=== PATIENT | female | born 1940 | race Caucasian/White ===

== ENCOUNTER 2016-11-19 00:55 | Inpatient (IN) | payer MEDICAID, OTHER ==
[~2016-11-19] VITALS: Ht 154.9 cm; Wt 475.4 kg
[~2016-11-19 00:55] MED LIST: ASCO500T9 PO; DEXT38GE12 PO; DOCU-25 PO; GLIM2TAB2 PO; GUAI600T PO; HYDR-3326 PO; IPRA3AMP IH; LEVO250T2 GT; LEVO500T15 PO; LEVO50TA8 PO; METF10002 PO; MONT10TA22 PO; MULT1TAB11 PO; OMEP20CA10 PO; PRED20TA PO; SENN8.6T6 PO; SERT25TA PO; TEMA15CA PO; TRAZ-144 PO; WHEA1POW6 PO
[2016-11-19] MEDS ORDERED: IV NS 0.9% 500 ML IV ONE ×2 (01:30→02:00)
[2016-11-19] MEDS ORDERED: IPRATROPIUM NEB FS 0.5 MG/2.5 ML AMPUL.NEB NEB ONE (01:30)
[2016-11-19] MEDS ORDERED: methylPREDNISolone SOD SUCC 125 MG/2ML VIAL IV ONE (01:30)
[2016-11-19] MEDS ORDERED: ALBUTEROL FS 2.5 MG/3 ML VIAL.NEB CONTNEB ONE (01:30)
[2016-11-19 01:38] LABS: BASOPHILS % (AUTO) 0.3 % (0.0-2.0); DIFF TOTAL % 100 %; EOSINOPHILS # (AUTO) 0.5 /CMM (0.0-0.7); EOSINOPHILS % (AUTO) 7.7 % (0.0-6.0); HEMATOCRIT 43 % (33-45); HEMOGLOBIN 13.9 g/dL (11.5-14.8); LYMPHOCYTES # (AUTO) 3.9 /CMM (0.8-4.8); MEAN CORPUSCULAR HEMOGLOBIN 30 PG (26.0-33.0); MEAN CORPUSCULAR HGB CONC 32 g/dl (31.0-36.0); MEAN CORPUSCULAR VOLUME 94 fL (82-100); MONOCYTES # (AUTO) 0.4 /CMM (0.1-1.30); MONOCYTES % (AUTO) 5.2 % (2.0-12.0); NEUTROPHILS % (AUTO) 29.8 % (43.0-81.0); PLATELET COUNT (AUTO) 272 /CMM (150-450); WHITE BLOOD COUNT (AUTO) 6.8 K/uL (4.3-11.0)
[2016-11-19] MEDS ORDERED: IPRATROPIUM NEB FS 0.5 MG/2.5 ML AMPUL.NEB ONE (01:44)
[2016-11-19] MEDS ORDERED: ALBUTEROL FS 2.5 MG/3 ML VIAL.NEB ONE (01:44)
[2016-11-19 01:54] LABS: ANION GAP 11 (5-14); CALCIUM, SERUM 9.2 mg/dL (8.5-10.1); CARBON DIOXIDE 29 mmol/L (21-32); CHLORIDE 109 mmol/L (98-107); CREATININE 0.9 mg/dL (0.6-1.3); GLUCOSE 107 mg/dL (74-106); POTASSIUM 3.6 mmol/L (3.5-5.1); SODIUM SERUM 146 mmol/L (136-145); UREA NITROGEN, BLOOD 24 mg/dL (7-18)
[2016-11-19] MEDS ORDERED: IV SET PRIMARY 1 EA INFUS.SET MC ONE (02:00)
[2016-11-19] MEDS ORDERED: methylPREDNISolone SOD SUCC 125 MG/2ML VIAL ONE (02:00)
[2016-11-19 02:03] LABS: TROPONIN I < 0.017 ng/mL (0.00-0.056)
[2016-11-19 02:19] LABS: ALANINE AMINOTRANSFERASE 13 U/L (12-78); ASPARTATE AMINOTRANSFERASE 14 U/L (15-37); BILIRUBIN,TOTAL 0.3 mg/dL (0.2-1.0); INDIRECT BILIRUBIN 0.3 mg/dL (0.0-1.1); TOTAL PROTEIN, SERUM 7.6 g/dL (6.4-8.2)
[2016-11-19 02:59] LABS: ABG BASE EXCESS 0.1 mmol/L; ABG HCO3 25.3 mmol/L; ABG PCO2 43.1 mmHg (35.0-45.0); ABG PH 7.387 (7.350-7.450); ABG PO2 52.7 mmHg (75.0-100.0); ABG TOTAL HEMOGLOBIN 13.6 G/dL (12.0-16.0); ALLEN TEST Pass; AaDO2 96.1 mmHg; O2Hb 86.3 % (94.0-97.0)
[2016-11-19] MEDS ORDERED: IOHEXOL-350 100 ML VIAL IV ONE (03:14)
[2016-11-19] MEDS ORDERED: IV NS 0.9% 250 ML IV ONE ×2 (03:14→09:03)
[2016-11-19] MEDS ORDERED: MAG HYDROX/AL HYDROX/SIMETH 30 ML UDC PO PRN (05:00)
[2016-11-19] MEDS ORDERED: ACETAMINOPHEN 325 MG TABLET PO PRN (05:00)
[2016-11-19] MEDS ORDERED: TEMAZEPAM 15 MG CAPSULE PO PRN (05:00)
[2016-11-19] MEDS ORDERED: ALBUTEROL FS 2.5 MG/3 ML VIAL.NEB NEB PRN (05:00)
[2016-11-19] MEDS ORDERED: MAGNESIUM HYDROXIDE 30 ML UDC PO PRN (05:00)
[2016-11-19] MEDS ORDERED: ONDANSETRON HCL/PF 4 MG/2 ML VIAL IVP PRN (05:00)
[2016-11-19] MEDS ORDERED: IPRATROPIUM NEB FS 0.5 MG/2.5 ML AMPUL.NEB NEB PRN (05:00)
[2016-11-19] MEDS ORDERED: Z GUARD REMEDY 2 OZ OINT TP PRN (05:00)
[2016-11-19 05:37] LABS: THYROID STIMULATING HORMONE 2.111 uIU/mL (0.358-3.74)
[2016-11-19 07:19] VITALS: BP 107/64
[2016-11-19] MEDS ORDERED: PANTOPRAZOLE 40 MG TABLET.DR PO SCH (07:30)
[2016-11-19 08:00] VITALS: BP 107/64
[2016-11-19] MEDS ORDERED: FLUT1DIS INH (08:08)
[2016-11-19] MEDS ORDERED: ALBU1.257 NEB (08:08)
[2016-11-19] MEDS ORDERED: DEXTROSE 50%-WATER 50 ML DISP.SYRIN IV PRN (08:30)
[2016-11-19] MEDS ORDERED: *INSULIN REGULAR(HUMULIN R)HUM 100 UNIT/ML VIAL SQ PRN (08:30)
[2016-11-19] MEDS: methylPREDNISolone SOD SUCC 40 MG/ML VIAL IV SCH ×3 (08:57→21:28)
[2016-11-19] MEDS ORDERED: LEVOFLOXACIN 500 MG /D5W 100ML 500 MG in PREMIX 1 EA IV SCH (09:00)
[2016-11-19] MEDS ORDERED: IV SET PRIMARY PUMP SET 1 EA INFUS.SET MC ONE (09:03)
[2016-11-19] MEDS ORDERED: SECONDARY IV SET 1 EA INFUS.SET MC ONE (09:03)
[2016-11-19] MEDS: INSULIN REGULAR, HUMAN 100 UNIT/ML 3 ML VIAL SQ PRN ×3 (09:07→21:46)
[2016-11-19] MEDS: BLOOD SUGAR DIAGNOSTIC 1 EACH STRIP VI SCH ×4 (09:08→21:46)
[2016-11-19] MEDS: ALBUTEROL FS 2.5 MG/3 ML VIAL.NEB NEB SCH ×3 (10:16→19:54)
[2016-11-19] MEDS: IPRATROPIUM NEB FS 0.5 MG/2.5 ML AMPUL.NEB NEB SCH ×3 (10:16→19:54)
[2016-11-19] MEDS ORDERED: methylPREDNISolone SOD SUCC 40 MG/ML VIAL IV SCH (11:00)
[2016-11-19] MEDS ORDERED: diphenhydrAMINE HCL ELIX 25 MG/10 ML UDC PO PRN (11:30)
[2016-11-19 18:52] VITALS: BP 98/51
[2016-11-19 20:00] VITALS: BP 102/61
[2016-11-19] MEDS ORDERED: ZOLPIDEM TARTRATE 5 MG TABLET ONE (20:45)
[2016-11-19] MEDS ORDERED: ZOLPIDEM TARTRATE 5 MG TABLET PO PRN (21:00)
[2016-11-20] MEDS: ALBUTEROL FS 2.5 MG/3 ML VIAL.NEB NEB SCH ×3 (00:30→13:29)
[2016-11-20] MEDS: IPRATROPIUM NEB FS 0.5 MG/2.5 ML AMPUL.NEB NEB SCH ×3 (00:30→13:29)
[2016-11-20] MEDS: methylPREDNISolone SOD SUCC 40 MG/ML VIAL IV SCH ×2 (05:28→12:41)
[2016-11-20] MEDS: BLOOD SUGAR DIAGNOSTIC 1 EACH STRIP VI SCH ×2 (06:47→11:56)
[2016-11-20 08:00] VITALS: BP 101/59
[2016-11-20] MEDS ORDERED: IPRA3AMP IH (08:40)
[2016-11-20] MEDS ORDERED: LEVOFLOXACIN 250 MG /D5W 50 ML 250 MG in PREMIX 1 EA IV SCH (09:00)
== END 2016-11-20 14:15 | disposition home or self-care (01) | DRG 189 ==
LOC: ER 00:56 → TELE 05:32 → MED 09:05
PROVIDERS: ADMIT Internal Medicine; ATTEND Internal Medicine
DX: J96.00 Acute respiratory failure, unspecified whether with hypoxia or hypercapnia (principal); J44.1 Chronic obstructive pulmonary disease with (acute) exacerbation; J45.909 Unspecified asthma, uncomplicated; E03.9 Hypothyroidism, unspecified; E11.9 Type 2 diabetes mellitus without complications; I10 Essential (primary) hypertension; I25.10 Atherosclerotic heart disease of native coronary artery without angina pectoris; I25.2 Old myocardial infarction; M19.90 Unspecified osteoarthritis, unspecified site; K21.9 Gastro-esophageal reflux disease without esophagitis
CPT/HCPCS: 36415; 36600; 71010-TC; 80048-TC; 80061-TC; 80076-TC; 82962-TC; 83735-TC; 83880; 84100-TC; 84443-TC; 84484-TC; 85025-TC; 85378-TC; 87081-TC; 94799-TC; A4216; A4606; J1815; J1956; J2920; J2930; J7040; J7050; Q9967; Z7610

== ENCOUNTER 2017-04-02 22:24 | Inpatient (IN) | payer OTHER ==
[~2017-04-02] VITALS: Ht 152.4 cm; Wt 40.8 kg
[~2017-04-02 22:24] MED LIST changes: -ASCO500T9 PO; -DEXT38GE12 PO; -DOCU-25 PO; +FLUT1DIS INH; -GLIM2TAB2 PO; -GUAI600T PO; -HYDR-3326 PO; -LEVO250T2 GT; -LEVO500T15 PO; -LEVO50TA8 PO; -MONT10TA22 PO; -MULT1TAB11 PO; -OMEP20CA10 PO; -PRED20TA PO; -SENN8.6T6 PO; -SERT25TA PO; -TEMA15CA PO; -TRAZ-144 PO; -WHEA1POW6 PO
--- NOTE | 2017-04-02 22:25 | NUR ---
TO BED 2 BIB PARAMEDICS C/O SOB. WHEEZING HEARD BILATERALLY ON AUSCULTATION. PT AAOX4 NO ACUTE DISTRESS NOTED, RESP EVEN AND UNLABORED. PLACE PT ON CARDIAC MONITORING, CONTINUOUS POX, O2@2L/NC. ER MD AT BEDSIDE TO EVAL PT WITH ORDERS RECEIVED. WILL CARRY OUT ORDERS. STARTED SL 18G TO l AC, BLOOD DRAWN AND SENT TO LAB.
[2017-04-02] MEDS ORDERED: IPRATROPIUM NEB FS 0.5 MG/2.5 ML AMPUL.NEB NEB ONE (22:30)
[2017-04-02] MEDS ORDERED: ALBUTEROL FS 2.5 MG/3 ML VIAL.NEB NEB ONE (22:30)
--- NOTE | 2017-04-02 22:30 | NUR ---
CALLED RT FOR BREATHING TREATMENT
--- NOTE | 2017-04-02 22:31 | NUR ---
RT AT BEDSIDE FOR HHN TX.
[2017-04-02] MEDS ORDERED: IPRATROPIUM NEB FS 0.5 MG/2.5 ML AMPUL.NEB ONE (22:40)
[2017-04-02] MEDS ORDERED: ALBUTEROL FS 2.5 MG/3 ML VIAL.NEB ONE (22:40)
--- NOTE | 2017-04-02 22:40 | NUR ---
URINE SAMPLE COLLECTED AND SENT TO LAB.
[2017-04-02 22:54] LABS: BASOPHILS % (AUTO) 0.3 % (0.0-2.0); EOSINOPHILS # (AUTO) 0.5 /CMM (0.0-0.7); EOSINOPHILS % (AUTO) 6.5 % (0.0-6.0); HEMATOCRIT 48 % (33-45); HEMOGLOBIN 15.9 g/dL (11.5-14.8); LYMPHOCYTES % (AUTO) 50.4 % (20.0-44.0); MEAN CORPUSCULAR HEMOGLOBIN 31 PG (26.0-33.0); MEAN CORPUSCULAR HGB CONC 33 g/dl (31.0-36.0); MEAN CORPUSCULAR VOLUME 93 fL (82-100); MONOCYTES # (AUTO) 0.5 /CMM (0.1-1.30); MONOCYTES % (AUTO) 6.9 % (2.0-12.0); NEUTROPHILS # (AUTO) 2.8 /CMM (1.8-8.9); NEUTROPHILS % (AUTO) 35.9 % (43.0-81.0); PLATELET COUNT (AUTO) 320 /CMM (150-450); RDW COEFFICIENT OF VARIATION 13.7 (11.5-15.0); WHITE BLOOD COUNT (AUTO) 7.9 K/uL (4.3-11.0)
[2017-04-02 23:03] LABS: APPEARANCE,URINE CLEAR (CLEAR); BILIRUBIN,URINE 1+ (NEGATIVE); BLOOD, URINE NEGATIVE Ery/uL (NEGATIVE); COLOR,URINE YELLOW (YELLOW); KETONES,URINE TRACE (NEGATIVE); LEUKOCYTE ESTERASE ,URINE NEGATIVE (NEGATIVE); NITRITE, URINE NEGATIVE (NEGATIVE); PH,URINE 5.5 (5.0-8.0); PROTEIN,URINE TRACE mg/dl (NEGATIVE); UGLUCOSE NEGATIVE (NEGATIVE); UROBILINOGEN,URINE 0.2 EU/dL (0.2)
[2017-04-02 23:06] LABS: CALCIUM, SERUM 9.3 mg/dL (8.5-10.1); CARBON DIOXIDE 33 mmol/L (21-32); CHLORIDE 104 mmol/L (98-107); CREATININE 1.1 mg/dL (0.6-1.3); GLUCOSE 130 mg/dL (74-106); SODIUM SERUM 145 mmol/L (136-145); UREA NITROGEN, BLOOD 22 mg/dL (7-18)
[2017-04-02 23:11] LABS: TROPONIN I < 0.017 ng/mL (0.00-0.056)
--- NOTE | 2017-04-02 23:16 | NUR ---
CHUCK AYALA AT BEDSIDE TO RE-EVAL PT.
[2017-04-02 23:17] LABS: ALANINE AMINOTRANSFERASE 16 U/L (12-78); ALBUMIN 4.3 g/dL (3.4-5.0); ALKALINE PHOSPHATASE 83 U/L (46-116); ASPARTATE AMINOTRANSFERASE 18 U/L (15-37); B-TYPE NATRIURETIC PEPTIDE 106 PG/ML (0-125); BILIRUBIN,DIRECT 0.1 mg/dL (0.0-0.2); BILIRUBIN,TOTAL 0.4 mg/dL (0.2-1.0); TOTAL PROTEIN, SERUM 8.2 g/dL (6.4-8.2)
[2017-04-02 23:22] LABS: BACTERIA,URINE None seen /HPF (None Seen); RBC,URINE 0-2 /HPF (0-2); SQUAMOUS EPITHELIAL CELL,UR Few /HPF (None Seen)
[2017-04-02 23:23] LABS: MUCUS,URINE Few /LPF (None Seen)
[2017-04-02 23:29] LABS: INR 1.04 (0.87-1.13); PROTHROMBIN TIME 11.1 SECS (9.5-12.7)
[2017-04-02] MEDS ORDERED: methylPREDNISolone SOD SUCC 125 MG/2ML VIAL ONE (23:54)
[2017-04-03] MEDS ORDERED: methylPREDNISolone SOD SUCC 125 MG/2ML VIAL IV ONE
--- NOTE | 2017-04-03 00:22 | NUR ---
REPORT GIVEN TO TREE/JOSEPHINE ON BEHAVE OF PRIMARY NURSE ED.
[2017-04-03] MEDS ORDERED: AZITHROMYCIN 250 MG TABLET PO ONE (00:30)
[2017-04-03] MEDS ORDERED: MAG HYDROX/AL HYDROX/SIMETH 30 ML UDC PO PRN (00:30)
[2017-04-03] MEDS ORDERED: MAGNESIUM HYDROXIDE 30 ML UDC PO PRN (00:30)
[2017-04-03] MEDS ORDERED: ACETAMINOPHEN 325 MG TABLET PO PRN (00:30)
[2017-04-03] MEDS ORDERED: Z GUARD REMEDY 2 OZ OINT TP PRN (00:30)
[2017-04-03] MEDS ORDERED: ONDANSETRON HCL/PF 4 MG/2 ML VIAL IVP PRN (00:30)
[2017-04-03] MEDS ORDERED: ZOLPIDEM TARTRATE 5 MG TABLET PO PRN (00:30)
[2017-04-03] MEDS ORDERED: HYDROCODONE/APAP 5/325MG 1 EACH TABLET PO PRN (00:30)
[2017-04-03 01:00] VITALS: BP 107/58
[2017-04-03] MEDS ORDERED: IPRATROPIUM NEB FS 0.5 MG/2.5 ML AMPUL.NEB NEB SCH (01:00)
[2017-04-03] MEDS ORDERED: ALBUTEROL FS 2.5 MG/3 ML VIAL.NEB NEB SCH (01:00)
--- NOTE | 2017-04-03 01:00 | NUR ---
MS RN NOTE: RECEIVED PATIENT FROM ER, NO ACUTE DISTRESS NOTED. BREATHING EVEN AND UNLABORED, NO SOB NOTED. IV TO LAC IN PLACE. ORIENTED PATIENT TO ROOM AND USE OF CALL LIGHT. BED LOCKED AND IN LOWEST POSITION, CALL LIGHT IN REACH. WILL CONTINUE TO MONITOR.
[2017-04-03] MEDS ORDERED: AZITHROMYCIN 250 MG TABLET ONE (01:59)
[2017-04-03 02:00] VITALS: BP 107/58
[2017-04-03] MEDS ORDERED: ALBUTEROL FS 2.5 MG/3 ML VIAL.NEB ONE (02:32)
[2017-04-03] MEDS ORDERED: IPRATROPIUM NEB FS 0.5 MG/2.5 ML AMPUL.NEB ONE (02:33)
[2017-04-03] MEDS: IPRATROPIUM NEB FS 0.5 MG/2.5 ML AMPUL.NEB NEB SCH ×6 (03:30→23:30)
[2017-04-03] MEDS: ALBUTEROL FS 2.5 MG/3 ML VIAL.NEB NEB SCH ×6 (03:30→23:30)
--- NOTE | 2017-04-03 03:55 | NUR ---
MEDS GIVEN AT 0242 FOR 0330 TX. OLD MED ORDER WAS DC.
--- NOTE | 2017-04-03 05:46 | NUR ---
Tx given at 02:42 for 03:30 Tx. Next scheduled Tx due at 07:30 .
--- NOTE | 2017-04-03 05:49 | NUR ---
Tx given at 02:42 for 03:30 Tx. Next scheduled Tx due at 07:30 .
--- NOTE | 2017-04-03 06:05 | NUR ---
MS RN NOTE: PATIENT RESTING IN BED, NO ACUTE DISTRESS NOTED. BREATHING EVEN AND UNLABORED, NO SOB NOTED. IV TO LAC IN PLACE. PATIENT BLOOD SUGAR LEVEL 224 MG/DL, PATIENT DENIES S/S OF HYPERGLYCEMIA AT THIS TIME. BED LOCKED AND IN LOWEST POSITION, CALL LIGHT IN REACH. WILL ENDORSE TO DAY NURSE TO CONTINUE WITH PLAN OF CARE.
[2017-04-03] MEDS: BLOOD SUGAR DIAGNOSTIC 1 EACH STRIP IN SCH ×4 (06:34→21:38)
[2017-04-03 08:00] VITALS: BP 107/71
--- NOTE | 2017-04-03 08:03 | NUR ---
patient noted in a stable condition.patient noted walking down the [address] .no respiratory distress noted at this time.patient to be continued to be monitored .
[2017-04-03] MEDS: METFORMIN 500 MG TABLET PO SCH ×2 (09:30→17:11)
[2017-04-03] MEDS: methylPREDNISolone SOD SUCC 40 MG/ML VIAL IV SCH (09:30)
[2017-04-03 16:00] VITALS: BP 116/52
[2017-04-03] MEDS ORDERED: GUAIFENESIN/D-METHORPHAN HB 5 ML UDC PO PRN (17:30)
[2017-04-03] MEDS ORDERED: IV NS 0.9% 1,000 ML IV PRN (18:00)
[2017-04-03 20:00] VITALS: BP 111/84
--- NOTE | 2017-04-03 20:00 | NUR ---
MS SOLAR INSTALLATION TECHNICIAN INITIAL NOTES SEEN PT AWAKE AND ALERT WALKING IN A [address], NO SIGNS OF ANY ACUTE DISTRESS NOTED. DENIES ANY PAIN OR ANY DISCOMFORT. BREATHING EVEN AND NON-LABORED. SKIN WARM AND DRY TO TOUCH.AWARE WHERE SHE AT AND HOW TO USED THE CALL LIGHT SYSTEM. EDUCATE HER REGARDING HER MEDICATION AND SHE UNDERSTOOD WELL. KEPT HER WARM AND COMFORTABLE AT ALL TIMES. WILL CONTINUE TO MONITOR. PLACE CALL AT REACH. WILL CONTINUE TO MONITOR.
--- NOTE | 2017-04-04 | NUR ---
MS PROTECTIVE SIGNAL OPERATIONS SUPERVISOR NOTES CHECKED PT SLEEPING AT THIS TIME, BREATHING EVEN AND NON-LABORED, NO SIGNS OF ANY ACUTE DISTRESS NOTED. KEPT HER WARM AND COMFORTABLE AT ALL TIMES. PLACE CALL LIGHT AT REACH.
[2017-04-04] MEDS: IPRATROPIUM NEB FS 0.5 MG/2.5 ML AMPUL.NEB NEB SCH ×4 (03:04→14:33)
[2017-04-04] MEDS: ALBUTEROL FS 2.5 MG/3 ML VIAL.NEB NEB SCH ×4 (03:05→14:33)
[2017-04-04] MEDS: BLOOD SUGAR DIAGNOSTIC 1 EACH STRIP IN SCH ×2 (06:52→13:59)
[2017-04-04 07:39] LABS: BASOPHILS % (AUTO) 0.2 % (0.0-2.0); EOSINOPHILS # (AUTO) 0.1 /CMM (0.0-0.7); EOSINOPHILS % (AUTO) 0.6 % (0.0-6.0); HEMATOCRIT 45 % (33-45); HEMOGLOBIN 14.7 g/dL (11.5-14.8); LYMPHOCYTES # (AUTO) 3.1 /CMM (0.8-4.8); LYMPHOCYTES % (AUTO) 27.8 % (20.0-44.0); MEAN CORPUSCULAR HEMOGLOBIN 31 PG (26.0-33.0); MEAN CORPUSCULAR HGB CONC 33 g/dl (31.0-36.0); MEAN CORPUSCULAR VOLUME 94 fL (82-100); MONOCYTES % (AUTO) 8.5 % (2.0-12.0); NEUTROPHILS % (AUTO) 62.9 % (43.0-81.0); PLATELET COUNT (AUTO) 283 /CMM (150-450); RDW COEFFICIENT OF VARIATION 14.1 (11.5-15.0); RED BLOOD CELL COUNT(AUTO) 4.76 MIL/uL (4.0-5.2); WHITE BLOOD COUNT (AUTO) 11.2 K/uL (4.3-11.0)
--- NOTE | 2017-04-04 07:45 | NUR ---
MS MULTIPLE GAMES DEALER CLOSING NOTES PT AWAKE NOW AND SEEMS HAPPY . SHE STATED "AMBIEN GOOD" SLEPT WELL AFTER AMBIEN GIVEN LAST NIGHT. STABLE DULCE THE NIGHT . ONLY ONE TIME COUGH MEDICINE GIVEN PT REQUESTED. KEPT HER WARM AND COMFORTABLE AT ALL TIMES. ENDORSE TO AM NURSE LATRICE/RN FOR CONTINUITY OF CARE. PLACE CALL LIGHT AT REACH.
[2017-04-04 07:55] LABS: CALCIUM, SERUM 9.2 mg/dL (8.5-10.1); CARBON DIOXIDE 30 mmol/L (21-32); CHLORIDE 101 mmol/L (98-107); CREATININE 0.8 mg/dL (0.6-1.3); GLUCOSE 100 mg/dL (74-106); MAGNESIUM 2.1 mg/dL (1.8-2.4); POTASSIUM 4.7 mmol/L (3.5-5.1); SODIUM SERUM 139 mmol/L (136-145); UREA NITROGEN, BLOOD 30 mg/dL (7-18)
[2017-04-04 07:56] LABS: CHOLESTEROL 211 mg/dL (<200); HDL CHOLESTEROL 91 mg/dL (40-60); LDL 90 mg/dL (0-99); TRIGLYCERIDES 57 mg/dL (30-150)
[2017-04-04 08:00] VITALS: BP 107/69
--- NOTE | 2017-04-04 08:00 | NUR ---
MS RN NOTES PATIENT IN BED RESTING NO SOB OR ACUTE DISTRESS NOTED. IV INTACT PATENT. BED IN LOW LOCKED POSITION. CALL LIGHT WITHIN REACH. WILL CONTINUE TO MONITOR.
[2017-04-04] MEDS ORDERED: AZITHROMYCIN 250 MG TABLET PO SCH (09:00)
--- NOTE | 2017-04-04 09:00 | NUR ---
MS RN NOTES PATIENT SEEN AND EVALUATED BY DR. VARGAS LARA ORDERS NOTED.
[2017-04-04] MEDS: METFORMIN 500 MG TABLET PO SCH (09:08)
[2017-04-04] MEDS: methylPREDNISolone SOD SUCC 40 MG/ML VIAL IV SCH (09:09)
[2017-04-04] MEDS ORDERED: PRED20TA PO (10:51)
[2017-04-04] MEDS ORDERED: AZIT250T PO (10:51)
[2017-04-04] MEDS ORDERED: GUAI5SYR PO (10:51)
--- NOTE | 2017-04-04 10:57 | NUR ---
MS RN NOTES ENDORSED CARE TO OSMAN RN. PATIENT SEEN AMBULATING IN HALLWAY. NO SOB OR ACUTE DISTRESS NOTED. IV INTACT PATENT.
[2017-04-04 16:04] VITALS: BP 101/66
--- NOTE | 2017-04-04 18:33 | NUR ---
PATIENT NOTED IN A STABLE CONDITION ALL DUE NURSING CARE WELL TOLERATED.PATIENT DISCHARGED WITH PRESCRIPTION.SON CAME TO PICK PATIENT UP.PRESCRIPTION EXPLAINED AND PATIENT AND PATIENTS SON VERBALIZED UNDERSTANDING.
== END 2017-04-04 17:55 | disposition home or self-care (01) | DRG 189 ==
LOC: ER 22:25 → TELE 04-03 00:15 → MED 04-03 01:34
PROVIDERS: ADMIT Family Medicine; ATTEND Family Medicine
DX: J96.01 Acute respiratory failure with hypoxia (principal); E43 Unspecified severe protein-calorie malnutrition; N17.0 Acute kidney failure with tubular necrosis; J44.1 Chronic obstructive pulmonary disease with (acute) exacerbation; I50.32 Chronic diastolic (congestive) heart failure; Z68.1 Body mass index [BMI] 19.9 or less, adult; K21.9 Gastro-esophageal reflux disease without esophagitis; E03.9 Hypothyroidism, unspecified; E86.0 Dehydration; I11.0 Hypertensive heart disease with heart failure; I25.10 Atherosclerotic heart disease of native coronary artery without angina pectoris; I25.2 Old myocardial infarction; E11.9 Type 2 diabetes mellitus without complications; M62.50 Muscle wasting and atrophy, not elsewhere classified, unspecified site
CPT/HCPCS: 36415; 71010-TC; 80048-TC; 80061-TC; 80076-TC; 81000-TC; 82962-TC; 83605-TC; 83735-TC; 83880; 84100-TC; 84484-TC; 85025-TC; 85730-TC; 87040-TC; 87081-TC; 94799-TC; A4606; J2405; J2920; J2930; Z7610

== ENCOUNTER 2017-05-02 23:12 | Inpatient (IN) | payer OTHER ==
[~2017-05-02] VITALS: Ht 152.4 cm; Wt 39.5 kg
[~2017-05-02 23:12] MED LIST changes: +AZIT250T PO; +GUAI5SYR PO; +PRED20TA PO
--- NOTE | 2017-05-02 23:20 | NUR ---
CALLED NURSING SUP. FOR TELE BED
[2017-05-02] MEDS ORDERED: IPRATROPIUM NEB FS 0.5 MG/2.5 ML AMPUL.NEB ONE (23:23)
[2017-05-02] MEDS ORDERED: ALBUTEROL FS 2.5 MG/3 ML VIAL.NEB ONE (23:23)
[2017-05-02] MEDS ORDERED: methylPREDNISolone SOD SUCC 125 MG/2ML VIAL ONE (23:24)
[2017-05-02] MEDS ORDERED: ALBUTEROL FS 2.5 MG/3 ML VIAL.NEB CONTNEB ONE (23:30)
[2017-05-02] MEDS ORDERED: methylPREDNISolone SOD SUCC 125 MG/2ML VIAL IV ONE (23:30)
[2017-05-02] MEDS ORDERED: IPRATROPIUM NEB FS 0.5 MG/2.5 ML AMPUL.NEB NEB ONE (23:30)
--- NOTE | 2017-05-02 23:32 | NUR ---
PT A/OX4 PT STATES SHE HAS BEEN SOB X 1 DAY AND IT IS GETTING WORSE, PT GIVEN BREATHIGN TREATMENT PRIOR TO ARRIVAL BY EMS, PT ON MONITOR, IN GOWN, IV PLACED, LABS DRAWN, RT IN ROOM, MD IN ROOM, WILL CONTINUE TO MONITOR.
[2017-05-02 23:34] LABS: BASOPHILS % (AUTO) 0.6 % (0.0-2.0); EOSINOPHILS # (AUTO) 0.2 /CMM (0.0-0.7); HEMATOCRIT 46 % (33-45); HEMOGLOBIN 15.4 g/dL (11.5-14.8); LYMPHOCYTES # (AUTO) 2.4 /CMM (0.8-4.8); LYMPHOCYTES % (AUTO) 41.2 % (20.0-44.0); MEAN CORPUSCULAR HEMOGLOBIN 31 PG (26.0-33.0); MEAN CORPUSCULAR HGB CONC 33 g/dl (31.0-36.0); MEAN CORPUSCULAR VOLUME 92 fL (82-100); MONOCYTES # (AUTO) 0.2 /CMM (0.1-1.30); MONOCYTES % (AUTO) 3.9 % (2.0-12.0); NEUTROPHILS # (AUTO) 2.9 /CMM (1.8-8.9); NEUTROPHILS % (AUTO) 50.3 % (43.0-81.0); PLATELET COUNT (AUTO) 252 /CMM (150-450); RDW COEFFICIENT OF VARIATION 13.8 (11.5-15.0); RED BLOOD CELL COUNT(AUTO) 5.01 MIL/uL (4.0-5.2); WHITE BLOOD COUNT (AUTO) 5.8 K/uL (4.3-11.0)
[2017-05-02 23:46] LABS: CALCIUM, SERUM 9.1 mg/dL (8.5-10.1); CARBON DIOXIDE 32 mmol/L (21-32); CHLORIDE 106 mmol/L (98-107); CREATININE 0.8 mg/dL (0.6-1.3); GLUCOSE 172 mg/dL (74-106); POTASSIUM 4.4 mmol/L (3.5-5.1); SODIUM SERUM 144 mmol/L (136-145); UREA NITROGEN, BLOOD 22 mg/dL (7-18)
[2017-05-02 23:53] LABS: TROPONIN I < 0.017 ng/mL (0.00-0.056)
[2017-05-02 23:59] LABS: ALANINE AMINOTRANSFERASE 18 U/L (12-78); ALBUMIN 4.2 g/dL (3.4-5.0); ALKALINE PHOSPHATASE 67 U/L (46-116); ASPARTATE AMINOTRANSFERASE 16 U/L (15-37); B-TYPE NATRIURETIC PEPTIDE 112 PG/ML (0-125); BILIRUBIN,DIRECT 0.1 mg/dL (0.0-0.2); BILIRUBIN,TOTAL 0.3 mg/dL (0.2-1.0); TOTAL PROTEIN, SERUM 7.7 g/dL (6.4-8.2)
--- NOTE | 2017-05-03 01:30 | NUR ---
MS RN NOTE RECEIVED PATIENT FROM ER, PATIENT IS ALERT AND ORIENTEDX3, GETTING OXYGEN 2L/MIN VIA NC, WHEEZE SOUND PRESENT, NO PAIN REPORTED. SKIN IS INTACT, NO EDEMA NOTED. IV ON RIGHT FA IS PATENT AND INTACT, WILL CONNECT TO THE FLUID ONCE GETTING IT FROM THE MEASURER. SRX2, BED IN LOW POSITION, CALL LIGHT WITHIN REACH, WILL CONTINUE TO MONITOR PATIENT.
[2017-05-03] MEDS ORDERED: ACETAMINOPHEN 325 MG TABLET PO PRN (02:00)
[2017-05-03] MEDS ORDERED: *INSULIN REGULAR(HUMULIN R)HUM 100 UNIT/ML VIAL SQ PRN (02:00)
[2017-05-03] MEDS ORDERED: DEXTROSE 50%-WATER 50 ML DISP.SYRIN IV PRN (02:00)
[2017-05-03] MEDS ORDERED: ALBUTEROL FS 2.5 MG/0.5 ML VIAL.NEB NEB PRN (02:30)
[2017-05-03] MEDS ORDERED: IPRATROPIUM NEB FS 0.5 MG/2.5 ML AMPUL.NEB NEB PRN (02:30)
[2017-05-03] MEDS ORDERED: LEVOFLOXACIN 250 MG /D5W 50 ML 250 MG in PREMIX 1 EA IV SCH (04:00)
[2017-05-03] MEDS: LEVOFLOXACIN 250 MG /D5W 50 ML 250 MG in PREMIX 1 EA IV SCH (04:21)
[2017-05-03] MEDS: BLOOD SUGAR DIAGNOSTIC 1 EACH STRIP VI SCH ×4 (06:24→21:57)
[2017-05-03] MEDS: INSULIN REGULAR, HUMAN 100 UNIT/ML 3 ML VIAL SQ PRN ×3 (06:27→17:16)
[2017-05-03 07:06] LABS: HEMATOCRIT 43 % (33-45); HEMOGLOBIN 14.2 g/dL (11.5-14.8); MEAN CORPUSCULAR HEMOGLOBIN 31 PG (26.0-33.0); MEAN CORPUSCULAR HGB CONC 33 g/dl (31.0-36.0); MEAN CORPUSCULAR VOLUME 93 fL (82-100); PLATELET COUNT (AUTO) 240 /CMM (150-450); RDW COEFFICIENT OF VARIATION 13.9 (11.5-15.0); RED BLOOD CELL COUNT(AUTO) 4.61 MIL/uL (4.0-5.2); WHITE BLOOD COUNT (AUTO) 5.1 K/uL (4.3-11.0)
[2017-05-03 07:07] LABS: LYMPHOCYTES # (AUTO) 0.4 /CMM (0.8-4.8); LYMPHOCYTES % (AUTO) 8.7 % (20.0-44.0); MONOCYTES % (AUTO) 0.7 % (2.0-12.0); NEUTROPHILS # (AUTO) 4.6 /CMM (1.8-8.9); NEUTROPHILS % (AUTO) 90.6 % (43.0-81.0)
[2017-05-03 07:16] LABS: CALCIUM, SERUM 8.7 mg/dL (8.5-10.1); CARBON DIOXIDE 23 mmol/L (21-32); CHLORIDE 105 mmol/L (98-107); CREATININE 1.1 mg/dL (0.6-1.3); GLUCOSE 210 mg/dL (74-106); POTASSIUM 4.2 mmol/L (3.5-5.1); SODIUM SERUM 144 mmol/L (136-145); UREA NITROGEN, BLOOD 23 mg/dL (7-18)
[2017-05-03] MEDS ORDERED: IPRATROPIUM NEB FS 0.5 MG/2.5 ML AMPUL.NEB ONE (07:17)
[2017-05-03] MEDS ORDERED: ALBUTEROL FS 2.5 MG/0.5 ML VIAL.NEB ONE (07:17)
[2017-05-03] MEDS: ALBUTEROL FS 2.5 MG/0.5 ML VIAL.NEB NEB SCH ×3 (07:19→20:24)
[2017-05-03] MEDS: IPRATROPIUM NEB FS 0.5 MG/2.5 ML AMPUL.NEB NEB SCH ×3 (07:20→20:24)
--- NOTE | 2017-05-03 07:30 | NUR ---
MS RN NOTE PATIENT IS RESTING IN BED COMFORTABLY, CALLED RT FOR BREATHING TREATMENT ON TIME SINCE PATIENT WAS ASKING SOMETHING FOR HER COUGH. WILL ENDORSE TO DAY SHIFT FOR EDA.
--- NOTE | 2017-05-03 07:45 | NUR ---
MS RN OPENING NOTES RECEIVED PT. FROM NIGHTSHIFT NURSE IN STABLE CONDITION. PT IS A/O X3. NO SOB OR SIGNS OF DISTRESS NOTED. BREATHING IS EVEN AND UNLABORED. PT IS ON 3L O2 VIA NC AND SATING WELL @ 98%. WHEEZES AUSCULTATED THROUGHOUT BILATERAL LUNG BOX. PT. REPORTS THAT HER BREATHING IS MUCH IMPROVED AT THIS TIME. IV PRESENT ON RIGHT AC 18 G INFUSING 1/2 NS 20MEQ KCL @80ML/HR. PT. IS TOLERATING INFUSION WELL. NO REDNESS OR SIGNS OF INFILTRATION NOTED. PT. DENIES ANY PAIN AT THIS. TIME. BED IN LOW LOCKED POSITION, SIDE RAILS UP X2, CALL LIGHT WITHIN REACH. WILL CONTINUE TO MONITOR.
[2017-05-03 08:00] VITALS: BP 126/80
--- NOTE | 2017-05-03 08:23 | NUR ---
MS RN NOTES PT. IS RECEIVING 1/2 NS 20MEQ OF KCL BUT HER LATEST K+ IS 4.4. DR VILLANUEVA WAS MADE AWARE, BUT HAS CONTINUED CURRENT INFUSION. NO NEW ORDERS GIVEN
[2017-05-03] MEDS: METFORMIN 500 MG TABLET PO SCH ×2 (10:09→17:09)
[2017-05-03] MEDS: methylPREDNISolone SOD SUCC 40 MG/ML VIAL IV SCH ×3 (10:09→21:52)
--- NOTE | 2017-05-03 10:39 | NUR ---
MS RN NOTES PT. DOWN FOR CT SCAN
--- NOTE | 2017-05-03 11:00 | NUR ---
MS RN NOTES PT. BACK FROM CHEST CT. WILL AWAIT RESULTS
[2017-05-03 16:00] VITALS: BP 121/76
[2017-05-03] MEDS: GUAIFENESIN/D-METHORPHAN HB 5 ML UDC PO PRN (17:57)
--- NOTE | 2017-05-03 18:35 | NUR ---
MS RN CLOSING NOTES PT. REMAINS IN STABLE CONDITION. ALL NEEDS WERE MET DURING SHIFT AND ORDERS CARRIED OUT ACCORDINGLY. NO ACUTE CHANGES IN CONDITION DURING SHIFT. PT. DENIES PAIN AT THIS TIME. BREATHING REMAINS EVEN AND UNLABORED AND O2 SAT REMAINS WELL ABOVE 92%. ALL SAFETY MEASURES IN PLACE. WILL ENDORSE TO NIGHTSHIFT NURSE FOR EDA
--- NOTE | 2017-05-03 19:15 | NUR ---
MS RN NOTES RECEIVED PT IN BED, AWAKE, A/OX 3,WATCHING TV AT THIS TIME. VERBALLY RESPONSIVE. NO DISTRESS, NO SOB NOTED. O2 SATURATION IS 97 % ON O2 VIA NC @ 2LPM. IV SITE ON RAC INTACT AND PATENT, IVF INFUSING WELL. ABDOMEN IS SOFT AND NON DISTENDED. NO S/S OF HYPO/ HYPERGLYCEMIA NOTED. PT IS AMBULATORY. ALL NEEDS ATTENDED AND MET. SAFETY PRECAUTIONS OBSERVED. CALL LIGHT WITHIN REACH. WILL CONTINUE TO MONITOR.
[2017-05-03 20:00] VITALS: BP 90/55
--- NOTE | 2017-05-03 22:30 | NUR ---
PT PULLED OUT IV ON RAC , NO S/S OF BLEEDING NOTED. INSERTED IV ON RFA G # 24 X 1 ATTEMPT, WITH GOOD VENOUS RETURN. PT JUSTINA WELL.
[2017-05-04] MEDS: IPRATROPIUM NEB FS 0.5 MG/2.5 ML AMPUL.NEB NEB SCH ×4 (01:08→20:03)
[2017-05-04] MEDS: ALBUTEROL FS 2.5 MG/0.5 ML VIAL.NEB NEB SCH ×4 (01:08→20:03)
[2017-05-04] MEDS: methylPREDNISolone SOD SUCC 40 MG/ML VIAL IV SCH ×2 (04:39→18:08)
[2017-05-04] MEDS: LEVOFLOXACIN 250 MG /D5W 50 ML 250 MG in PREMIX 1 EA IV SCH (04:42)
[2017-05-04] MEDS: BLOOD SUGAR DIAGNOSTIC 1 EACH STRIP VI SCH ×4 (05:35→21:26)
[2017-05-04] MEDS: INSULIN REGULAR, HUMAN 100 UNIT/ML 3 ML VIAL SQ PRN ×2 (05:39→12:49)
--- NOTE | 2017-05-04 06:18 | NUR ---
MS RN NOTES PT IN BED,RESTING COMFORTABLY IN BED, AROUSES EASILY. A/OX 3. VERBALLY RESPONSIVE. NO DISTRESS, NO SOB NOTED. O2 SATURATION IS 97 % ON O2 VIA NC @ 2LPM. IV SITE ON RAC INTACT AND PATENT, IVF INFUSING WELL. ABDOMEN IS SOFT AND NON DISTENDED. NO S/S OF HYPO/ HYPERGLYCEMIA NOTED. PT IS AMBULATORY. ALL NEEDS ATTENDED AND MET. SAFETY PRECAUTIONS OBSERVED. CALL LIGHT WITHIN REACH. WILL ENDORSE TO NEXT SHIFT FOR EDA.
[2017-05-04 06:51] LABS: CALCIUM, SERUM 8.2 mg/dL (8.5-10.1); CHLORIDE 106 mmol/L (98-107); CREATININE 0.8 mg/dL (0.6-1.3); GLUCOSE 132 mg/dL (74-106); SODIUM SERUM 141 mmol/L (136-145); UREA NITROGEN, BLOOD 21 mg/dL (7-18)
[2017-05-04 07:05] LABS: THYROID STIMULATING HORMONE 0.327 uIU/mL (0.358-3.74)
[2017-05-04 07:09] LABS: HEMATOCRIT 38 % (33-45); HEMOGLOBIN 12.5 g/dL (11.5-14.8); LYMPHOCYTES % (AUTO) 8.5 % (20.0-44.0); MEAN CORPUSCULAR HEMOGLOBIN 31 PG (26.0-33.0); MEAN CORPUSCULAR HGB CONC 33 g/dl (31.0-36.0); MEAN CORPUSCULAR VOLUME 93 fL (82-100); NEUTROPHILS % (AUTO) 86.9 % (43.0-81.0); RDW COEFFICIENT OF VARIATION 13.8 (11.5-15.0); RED BLOOD CELL COUNT(AUTO) 4.06 MIL/uL (4.0-5.2); WHITE BLOOD COUNT (AUTO) 9.7 K/uL (4.3-11.0)
[2017-05-04 07:10] LABS: BASOPHILS % (AUTO) 0.3 % (0.0-2.0); LYMPHOCYTES # (AUTO) 0.8 /CMM (0.8-4.8); MONOCYTES # (AUTO) 0.4 /CMM (0.1-1.30); MONOCYTES % (AUTO) 4.3 % (2.0-12.0); NEUTROPHILS # (AUTO) 8.4 /CMM (1.8-8.9)
--- NOTE | 2017-05-04 07:42 | NUR ---
RN Notes On bed awake,alert and oriented. Not in any form of distress. Breathing is even and unlabored. Denies headache or dizziness. With 02 inhalation at 2 lpm via nasal canula saturating at 97% with no SOB. With IV access on right forearm gg 24, with infusing IVF of 1/2 NS with 20 meq KCL at 80 cc/hr infusing well. no complain at this time.
[2017-05-04 08:00] VITALS: BP 92/52
[2017-05-04 08:36] LABS: CARBON DIOXIDE 26 mmol/L (21-32)
[2017-05-04] MEDS: METFORMIN 500 MG TABLET PO SCH ×2 (08:50→18:08)
[2017-05-04 10:11] LABS: PLATELET COUNT (AUTO) 142 /CMM (150-450)
--- NOTE | 2017-05-04 11:53 | NUR ---
RN Notes Obtained order to DC IVF 1/2 NS +20 meq KCL with serum KCL 5.0. Per Dr Massey DC IVF
[2017-05-04 16:00] VITALS: BP 101/62
--- NOTE | 2017-05-04 18:46 | NUR ---
RN Notes On bed awake,alert and oriented. Not in any form of distress. Needs anticipated. No untoward symptom noted within the shift. Will endorse to shift lab technician nurse for the continuity of care. Call light within easy reach.
--- NOTE | 2017-05-04 19:10 | NUR ---
MS RN NOTES RECEIVED PT IN BED, AWAKE, A/OX 3. VERBALLY RESPONSIVE. NO DISTRESS, NO SOB NOTED. O2 SATURATION IS 99 % ON O2 VIA NC @ 2LPM. IV SITE ON RFA INTACT AND PATENT. ABDOMEN IS SOFT AND NON DISTENDED. NO S/S OF HYPO/ HYPERGLYCEMIA NOTED. PT IS AMBULATORY. ALL NEEDS ATTENDED AND MET. SAFETY PRECAUTIONS OBSERVED. CALL LIGHT WITHIN REACH. WILL CONTINUE TO MONITOR.
[2017-05-04 20:00] VITALS: BP 97/57
--- NOTE | 2017-05-04 20:30 | NUR ---
PT REFUSED TO WEAR DVT PUMPS , RISKS AND BENEFITS EXPLAINED. PT STILL REFUSED X 3 .
[2017-05-04 20:35] VITALS: BP 97/57
--- NOTE | 2017-05-04 21:05 | NUR ---
PT VERBALIZED THAT SHE'S BEEN TAKING AMBIEN FOR 10 YEARS. PT IS ASKING FOR AMBIEN , C/O INABILITY TO SLEEP. WILL CALL DR. VILLANUEVA.
--- NOTE | 2017-05-04 21:08 | NUR ---
PT C/O INABILITY TO SLEEP AND ASKING FOR AMBIEN, PLACED A CALL TO DR VILLANUEVA WITH N.O OF AMBIEN 5 MG QHS PRN, NOTED, CARRIED OUT AND ACKNOWLEDGED.
[2017-05-04] MEDS ORDERED: ZOLPIDEM TARTRATE 5 MG TABLET ONE (21:14)
[2017-05-04] MEDS ORDERED: ZOLPIDEM TARTRATE 5 MG TABLET PO PRN (21:30)
[2017-05-05] MEDS: IPRATROPIUM NEB FS 0.5 MG/2.5 ML AMPUL.NEB NEB SCH ×3 (01:22→14:13)
[2017-05-05] MEDS: ALBUTEROL FS 2.5 MG/0.5 ML VIAL.NEB NEB SCH ×3 (01:22→14:13)
--- NOTE | 2017-05-05 02:45 | NUR ---
PT IN BED, ASLEEP AT THIS TIME, STABLE. SAFETY PRECAUTIONS OBSERVED. WILL CONT TO MONITOR.
[2017-05-05] MEDS: methylPREDNISolone SOD SUCC 40 MG/ML VIAL IV SCH ×2 (04:28→16:21)
[2017-05-05] MEDS: LEVOFLOXACIN 250 MG /D5W 50 ML 250 MG in PREMIX 1 EA IV SCH (04:31)
[2017-05-05] MEDS: GUAIFENESIN/D-METHORPHAN HB 5 ML UDC PO PRN (05:35)
[2017-05-05] MEDS: BLOOD SUGAR DIAGNOSTIC 1 EACH STRIP VI SCH ×3 (05:38→17:12)
--- NOTE | 2017-05-05 06:40 | NUR ---
MS RN NOTES PT IN BED, AWAKE, A/OX 3. VERBALLY RESPONSIVE. NO DISTRESS, NO SOB NOTED. O2 SATURATION IS 99 % ON O2 VIA NC @ 2LPM. IV SITE ON RFA INTACT AND PATENT. ABDOMEN IS SOFT AND NON DISTENDED. NO S/S OF HYPO/ HYPERGLYCEMIA NOTED. PT IS AMBULATORY. ALL NEEDS ATTENDED AND MET. SAFETY PRECAUTIONS OBSERVED. CALL LIGHT WITHIN REACH. WILL ENDORSE TO NEXT SHIFT FOR EDA.
--- NOTE | 2017-05-05 07:20 | NUR ---
RN Initial Notes: Received patient in bed. Patient alert oriented x3. No shortness of breath noted. Patient denies pain. Patient on 2 LPM nasal cannula. IV on right forearm intact and patent. Call light within reach. Head of bed elevated. Will continue to monitor.
[2017-05-05 08:00] VITALS: BP 113/84
[2017-05-05] MEDS: METFORMIN 500 MG TABLET PO SCH ×2 (08:53→16:14)
[2017-05-05] MEDS ORDERED: LEVO500T15 PO (11:07)
[2017-05-05] MEDS ORDERED: ALBU2.5V13 NEB (11:07)
[2017-05-05] MEDS ORDERED: PRED25PO13 MC (11:07)
[2017-05-05 16:00] VITALS: BP 119/72
--- NOTE | 2017-05-05 18:51 | NUR ---
MS RN Closing Notes: [facility] MD orders. Patient stable. No shortness of breath. No signs of distress noted. Patient denies pain. Patient's son notified of discharge. Report given to JOSEPHINE Landers [facility]. Exit Care instructions provided to AYUSH, RN as well as patient's son with verbal understanding noted. IV line removed with no adverse reactions. No skin issues noted. Patient discharge via ambulance. Patient stable upon discharge.
[2017-05-06] MEDS ORDERED: LEVOFLOXACIN (250MG) 250 MG TABLET PO SCH (05:00)
== END 2017-05-05 18:50 | DRG 189 ==
LOC: ER 23:16 → MED 05-03 01:37
PROVIDERS: ADMIT Internal Medicine; ATTEND Internal Medicine
DX: J96.90 Respiratory failure, unspecified, unspecified whether with hypoxia or hypercapnia (principal); J44.0 Chronic obstructive pulmonary disease with (acute) lower respiratory infection; J21.9 Acute bronchiolitis, unspecified; J44.1 Chronic obstructive pulmonary disease with (acute) exacerbation; E11.9 Type 2 diabetes mellitus without complications; E03.9 Hypothyroidism, unspecified; I25.10 Atherosclerotic heart disease of native coronary artery without angina pectoris; I25.2 Old myocardial infarction; K21.9 Gastro-esophageal reflux disease without esophagitis; M19.90 Unspecified osteoarthritis, unspecified site; I11.0 Hypertensive heart disease with heart failure; I50.9 Heart failure, unspecified
CPT/HCPCS: 36415; 71010-TC; 71250-TC; 80048-TC; 80076-TC; 82962-TC; 83605-TC; 83880; 84443-TC; 84484-TC; 85025-TC; 87040-TC; 87081-TC; 94799-TC; A4216; A4606; J1815; J1956; J2920; J2930; J3480; J3490; Z7610

== ENCOUNTER 2017-06-20 17:43 | Inpatient (IN) | payer OTHER ==
[~2017-06-20] VITALS: Ht 152.4 cm; Wt 45.4 kg
[~2017-06-20 17:43] MED LIST changes: +ALBU2.5V13 NEB; -AZIT250T PO; -FLUT1DIS INH; -IPRA3AMP IH; +LEVO500T15 PO; -PRED20TA PO; +PRED25PO13 MC
--- NOTE | 2017-06-20 18:05 | NUR ---
BB AMBULANCE TO ER - COUGH AND CONGESTION X 1 WEEK
[2017-06-20 18:24] LABS: BASOPHILS # (AUTO) 0.1 /CMM (0.0-0.2); BASOPHILS % (AUTO) 1.4 % (0.0-2.0); EOSINOPHILS # (AUTO) 0.9 /CMM (0.0-0.7); EOSINOPHILS % (AUTO) 12.2 % (0.0-6.0); HEMATOCRIT 45 % (33-45); HEMOGLOBIN 14.7 g/dL (11.5-14.8); LYMPHOCYTES # (AUTO) 2.6 /CMM (0.8-4.8); LYMPHOCYTES % (AUTO) 34.8 % (20.0-44.0); MEAN CORPUSCULAR HEMOGLOBIN 30 PG (26.0-33.0); MEAN CORPUSCULAR HGB CONC 33 g/dl (31.0-36.0); MEAN CORPUSCULAR VOLUME 93 fL (82-100); MONOCYTES # (AUTO) 0.4 /CMM (0.1-1.30); MONOCYTES % (AUTO) 5.8 % (2.0-12.0); NEUTROPHILS # (AUTO) 3.5 /CMM (1.8-8.9); NEUTROPHILS % (AUTO) 45.8 % (43.0-81.0); PLATELET COUNT (AUTO) 328 /CMM (150-450); RDW COEFFICIENT OF VARIATION 13.5 (11.5-15.0); RED BLOOD CELL COUNT(AUTO) 4.83 MIL/uL (4.0-5.2); WHITE BLOOD COUNT (AUTO) 7.5 K/uL (4.3-11.0)
--- NOTE | 2017-06-20 18:30 | NUR ---
RADIOLOGY AT BEDSIDE FOR CHEST XRAY.
[2017-06-20 18:37] LABS: CALCIUM, SERUM 9.4 mg/dL (8.5-10.1); CARBON DIOXIDE 31 mmol/L (21-32); CHLORIDE 104 mmol/L (98-107); CREATININE 0.8 mg/dL (0.6-1.3); GLUCOSE 115 mg/dL (74-106); POTASSIUM 4.7 mmol/L (3.5-5.1); SODIUM SERUM 143 mmol/L (136-145); UREA NITROGEN, BLOOD 17 mg/dL (7-18)
[2017-06-20 18:43] LABS: ALANINE AMINOTRANSFERASE 16 U/L (12-78); ALBUMIN 3.9 g/dL (3.4-5.0); ALKALINE PHOSPHATASE 81 U/L (46-116); ASPARTATE AMINOTRANSFERASE 16 U/L (15-37); BILIRUBIN,DIRECT 0.1 mg/dL (0.0-0.2); BILIRUBIN,TOTAL 0.5 mg/dL (0.2-1.0); TOTAL PROTEIN, SERUM 7.7 g/dL (6.4-8.2)
[2017-06-20 18:45] LABS: TROPONIN I < 0.017 ng/mL (0.00-0.056)
[2017-06-20 18:47] LABS: INR 1.06 (0.87-1.13)
[2017-06-20 20:00] VITALS: BP 111/73
--- NOTE | 2017-06-20 20:20 | NUR ---
REPORT GIVEN TO FILIBERTO. PT AWAITING TRANSFER TO FLOOR.
--- NOTE | 2017-06-20 20:40 | NUR ---
MS RN NOTE RECEIVED PATIENT FROM ER VIA GURNEY, PATIENT IS ALERT AND ORIENTEDX2, AMBULATORY WITH ASSIST, NO EDEMA OR NO PAIN REPORTED. WHEEZE SOUND PRESENT UPON AUSCULTATION, O2 SAT 95% RA. GOT AN ADMISSION ORDER FROM DR. VILLANUEVA, WILL PUT IT IN A SYSTEM. SRX2, BED IN LOW POSITION, CALL LIGHT WITHIN REACH, WILL CONTINUE TO MONITOR PATIENT.
--- NOTE | 2017-06-20 22:00 | NUR ---
MS RN NOTE PATIENT SCREAMS ON THE HALLWAY, LOOKS ANXIOUS AND CONFUSED. PATIENT ALSO KEEPS SPITTING INTO AN EMESIS BAG. CALLED DR. VILLANUEVA AND GOT AN ORDER OF XANAX 0.25MG PO Q6H PRN AND IF IT IS NOT WORKING 0.5 XANAX PO Q6H PRN. ZOFRAN 4MG IVP Q4H PRN. ORDERS PUT IN AND WILL ADMINISTER.
--- NOTE | 2017-06-20 22:15 | NUR ---
MS RN NOTE PATIENT HAS WHEEZE LUNG SOUNDS, CALLED RT FOR PRN BREATHING TX.
--- NOTE | 2017-06-21 06:39 | NUR ---
MS RN NOTE PATIENT IS RESTING IN BED, LOOKS CALMER THAN LAST NIGHT. IV ON RIGHT AC IS PATENT AND INTACT, NO FLUID IS RUNNING. STILL HAS WHEEZE SOUNDS WHEN SHE WAS OFF OXYGEN FOR A WHILE, REINFORCED THE PATIENT TO KEEP IT ON CONTINUOUSLY. WILL ENDORSE TO DAY SHIFT NURSE FOR EDA.
[2017-06-21 07:18] LABS: BASOPHILS % (AUTO) 0.4 % (0.0-2.0); EOSINOPHILS % (AUTO) 0.6 % (0.0-6.0); HEMATOCRIT 39 % (33-45); HEMOGLOBIN 12.6 g/dL (11.5-14.8); LYMPHOCYTES # (AUTO) 0.9 /CMM (0.8-4.8); LYMPHOCYTES % (AUTO) 22.8 % (20.0-44.0); MEAN CORPUSCULAR HEMOGLOBIN 31 PG (26.0-33.0); MEAN CORPUSCULAR HGB CONC 33 g/dl (31.0-36.0); MEAN CORPUSCULAR VOLUME 93 fL (82-100); MONOCYTES # (AUTO) 0.1 /CMM (0.1-1.30); MONOCYTES % (AUTO) 1.4 % (2.0-12.0); NEUTROPHILS # (AUTO) 2.8 /CMM (1.8-8.9); NEUTROPHILS % (AUTO) 74.8 % (43.0-81.0); PLATELET COUNT (AUTO) 263 /CMM (150-450); RDW COEFFICIENT OF VARIATION 13.9 (11.5-15.0); RED BLOOD CELL COUNT(AUTO) 4.13 MIL/uL (4.0-5.2); WHITE BLOOD COUNT (AUTO) 3.7 K/uL (4.3-11.0)
[2017-06-21 07:30] LABS: CALCIUM, SERUM 8.4 mg/dL (8.5-10.1); CARBON DIOXIDE 28 mmol/L (21-32); CHLORIDE 106 mmol/L (98-107); CREATININE 0.7 mg/dL (0.6-1.3); GLUCOSE 136 mg/dL (74-106); POTASSIUM 5.1 mmol/L (3.5-5.1); SODIUM SERUM 142 mmol/L (136-145); UREA NITROGEN, BLOOD 12 mg/dL (7-18)
--- NOTE | 2017-06-21 07:32 | NUR ---
MS RN OPENING NOTE ALERT AND ORIENTED x2. NO SOB OR DISTRESS NOTED. CALL LIGHT WITHIN REACH. SAFETY MEASURES IMPLEMENTED. ABLE TO COMMUNICATE NEEDS. IV INTACT AND PATENT NO REDNESS OR SWELLING NOTED. WILL CONTINUE TO MONITOR
[2017-06-21 08:00] VITALS: BP 108/58
[2017-06-21] MEDS ORDERED: MONT10TA22 PO (11:03)
[2017-06-21] MEDS ORDERED: LEVO50TA8 PO (11:03)
[2017-06-21] MEDS ORDERED: FLUT1DIS5 IH (11:03)
[2017-06-21] MEDS ORDERED: ERGO50003 PO (11:03)
[2017-06-21] MEDS ORDERED: ALBU8.5H2 IH (11:03)
--- NOTE | 2017-06-21 13:50 | NUR ---
MS IMPLEMENTATION LEAD NOTE PATIENT IS ALERT AND ORIENTED X2. NO PAIN AT THIS TIME. NO SOB OR DISTRESS NOTED. CALL LIGHT WITHIN REACH AT ALL TIMES. SAFETY MEASURES IMPLEMENTED. ABLE TO COMMUNICATE NEEDS. IV REMOVED, SKIN INTACT. WOUND PICTURES TAKEN AND DOCUMENTED. GAVE DISCHARGE INSTRUCTIONS TO PATIENT AND CAREGIVER AT BEDSIDE. PRESCRIPTION GIVEN TO CAREGIVER AND CAREGIVER GAVE TEACH BACK ON INSTRUCTIONS. ALL DUE MEDICATIONS GIVEN ORDERED. ALL NURSING CARE NEEDS ATTENDED TO. ALL BELONGINGS WITH PATIENT. LEAVING VIA PRIVATE CAR WITH CAREGIVERKAITLYNN.
--- NOTE | 2017-06-21 13:54 | NUR ---
PLEASE DISREGARD LAST NURSING NOTE
[2017-06-21 16:00] VITALS: BP 106/66
--- NOTE | 2017-06-21 18:34 | NUR ---
MS RN CLOSING NOTE PATIENT IS ALERT AND ORIENTED x2. NO PAIN AT THIS TIME. NO SOB OR DISTRESS NOTED. ABLE TO COMMUNICATE NEEDS. PERIODS OF CONFUSION, CAN BE EASILY DIRECTED TO TIME. CALL LIGHT WITHIN REACH AT ALL TIMES. SAFETY MEASURES IMPLEMENTED. IV INTACT AND PATENT NO REDNESS OR SWELLING NOTED. ALL DUE MEDICATIONS GIVEN ORDERED. PATIENT HAS COUGH, MEDICATION GIVEN AND ENCOURAGED PATIENT TO DRINK FLUIDS. BLOOD SUGAR MONITORING, INSULIN GIVEN NEEDED. POSSIBLE DISCHARGE TOMORROW. WILL ENDORSE TO PROGRAM CLERK NURSE FOR EDA
--- NOTE | 2017-06-21 19:00 | NUR ---
MS RN NOTES RECEIVE PT RESTING IN BED, A/OX 1. NO S/S OF DISTRESS OR SOB. SAFETY MEASURES IN PLACE, ON LOW BED TO ENSURE SAFETY. CALL LIGHT WITHIN REACH. WILL CONTINUE TO MONITOR.
[2017-06-21 20:00] VITALS: BP 102/61
--- NOTE | 2017-06-22 06:45 | NUR ---
MS RN CLOSING NOTES PATIENT COMFORTABLY ASLEEP AND EASILY AWAKEN, HEAD OF BED ELEVATED.NO S/S OF HYPO/HYPERGLYCEMIA. ON 2LPM VIA NC 02 SAT 97% IV SITE TO RAC 20 G, PATENT AND INTACT WITH NO S/S OF INFILTRATION NOTED. ON ATB WITH NO A/R NOTED. APPEARS NOT IN DISTRESS. RESPIRATIONS EVEN AND UNLABORED, FREQUENT VISUAL CHECK DONE FOR SAFETY EVERY 2 HOURS. PATIENT ASSISTED REPOSITIONED EVERY 2 HOURS FOR SKIN MGT. NURSING CARE RENDERED, NEEDS ATTENDED AND ANTICIPATED, KEPT CLEAN AND DRY AND COMFORTABLE, GOOD SKIN CARE PROVIDED. OFFLOAD AT ALL TIMES. SAFE HAZARD FREE ENVIRONMENT PROVIDED. CALL LIGHT WITHIN EASY TO REACH, ON LOW BED AT ALL TIMES TO ENSURE SAFETY, WILL ENDORSE TO THE NEXT SHIFT CONTINUE PLAN OF CARE
--- NOTE | 2017-06-22 07:20 | NUR ---
RN OPENING NOTES RECEIVE PT RESTING IN BED, A/OX 1. NO ACUTE DISTRESS, NO SOB NOTED. IV SITE INTACT AND PATENT. SAFETY MEASURES IN PLACE, ON LOW BED TO ENSURE SAFETY. CALL LIGHT WITHIN REACH. WILL CONTINUE TO MONITOR ACCORDINGLY.
[2017-06-22 08:00] VITALS: BP_SYST 97; BP_SYST 98; BP_DIAS 63
[2017-06-22 16:00] VITALS: BP 96/57
--- NOTE | 2017-06-22 19:00 | NUR ---
RN NOTES PATIENT IN BED RESTING. NO ACUTE DISTRESS, NO SOB NOTED. ALL NEEDS ATTENDED AND PROVIDED. KEPT PATIENT SAFE AND COMFORTABLE. BED IN LOW POSITION, LOCKED, SIDERAILS UP X2. CALL LIGHT IN REACH, ENDORSED TO PRODUCT SAFETY ENGINEER RN FOR EDA.
--- NOTE | 2017-06-22 19:40 | NUR ---
MS/RN OPENING NOTES PATIENT AWAKE. ALERT X1, BRP W/ ASSISTANCE OBSERVE REQUIRING NEEDS AND MONITORING, MONITORING FOR ANY S/S OF SOB OR DISTRESS, KEPT COMFORTABLE, RT AT BEDSIDE FOR BREATHING TX/ RECEIVE ENDORSEMENT FROM AM RN FOR EDA, ATTEND TO NEEDS.WILL CONTINUE TO MONITOR.
[2017-06-22 20:00] VITALS: BP 105/60
[2017-06-23] MEDS ORDERED: LEVO500T15 PO (06:15)
[2017-06-23] MEDS ORDERED: PRED20TA PO (06:15)
--- NOTE | 2017-06-23 06:21 | NUR ---
ms/rn closing notes md made rounds and order to monitor patient on room air to check oxygenation level, inform patient for plan of discharge to correction and monitoring any s/s of difficulty breathing, patient able to verbalize needs, walks to bathroom w minimal supervision and respiration even and unlabored. skin warm to touch, call lights within reach, will continue to monitor and endorse to am rn.
--- NOTE | 2017-06-23 07:10 | NUR ---
RN NOTES PT IS IN BED, SLEEPING COMFORTABLY. PT ON RA, NO SOB OR DISTRESS. IV ON RAC, INTACT AND PATENT. SAFETY MEASURES ARE IN PLACE, CALL LIGHT IS IN REACH. WILL CONTINUE TO MONITOR.
[2017-06-23 07:30] LABS: CARBON DIOXIDE 29 mmol/L (21-32); CHLORIDE 104 mmol/L (98-107); CREATININE 0.6 mg/dL (0.6-1.3); GLUCOSE 154 mg/dL (74-106); POTASSIUM 4.7 mmol/L (3.5-5.1); SODIUM SERUM 140 mmol/L (136-145); UREA NITROGEN, BLOOD 12 mg/dL (7-18)
[2017-06-23 08:00] VITALS: BP 96/62
[2017-06-23 16:00] VITALS: BP 114/74
--- NOTE | 2017-06-23 18:30 | NUR ---
RN NOTES PT TO BE DISCHARGED TO [facility] IN STABLE CONDITION. REPORT WAS GIVEN TO THE NURSE,SARAH, AT THE FACILITY. ALL MEDS WERE GIVEN ORDERED. IV AND ID BAND WERE REMOVED. DISCHARGE PAPERS AND BELONGINGS LIST WERE SIGNED. PT WAS GIVEN NEW PRESCRIPTION. THE SON, AKBAR, WAS MADE AWARE OF THE PLACEMENT TO [facility].
== END 2017-06-23 19:30 | DRG 190 ==
LOC: ER 17:45 → MED 20:44
PROVIDERS: ADMIT Internal Medicine; ATTEND Internal Medicine
DX: J44.1 Chronic obstructive pulmonary disease with (acute) exacerbation (principal); J96.90 Respiratory failure, unspecified, unspecified whether with hypoxia or hypercapnia; I50.32 Chronic diastolic (congestive) heart failure; E03.9 Hypothyroidism, unspecified; E11.9 Type 2 diabetes mellitus without complications; I25.10 Atherosclerotic heart disease of native coronary artery without angina pectoris; I25.2 Old myocardial infarction; Z79.84 Long term (current) use of oral hypoglycemic drugs; K21.9 Gastro-esophageal reflux disease without esophagitis; I11.0 Hypertensive heart disease with heart failure; Z88.0 Allergy status to penicillin; Z88.8 Allergy status to other drugs, medicaments and biological substances; Z88.6 Allergy status to analgesic agent; Z91.012 Allergy to eggs; Z91.011 Allergy to milk products
CPT/HCPCS: 36415; 71010-TC; 80048-TC; 80076-TC; 82962-TC; 83605-TC; 84484-TC; 85025-TC; 85730-TC; 87040-TC; 87081-TC; 94799-TC; A4216; J1815; J1956; J2920; J7030; J7040; Z7610

== ENCOUNTER 2017-10-09 12:06 | Inpatient (IN) | payer OTHER ==
[~2017-10-09] VITALS: Ht 152.4 cm; Wt 49.0 kg
[~2017-10-09 12:06] MED LIST changes: -ALBU2.5V13 NEB; +ALBU8.5H8 IH; +ERGO500014 PO; +FLUT1DIS5 IH; -LEVO500T15 PO; +LEVO500T75 PO; +LEVO50TA8 PO; +MONT10TA22 PO; +PRED20TA PO; -PRED25PO13 MC
--- NOTE | 2017-10-09 12:10 | NUR ---
BB CAREGIVER FROM [facility] FOR SOB X 3 DAYS. PATIENT IS PALE, TACHYPNIC, O2 SAT 39% ON ROOM AIR. PLACED INTO BED, NON REBREATHER APPLIED. VITALS STABLE. SAFETY AND COMFORT MEASURES IN PLACE. MD AT BEDSIDE FOR EVAL.
--- NOTE | 2017-10-09 12:15 | NUR ---
NEW IV STARTED ON LEFT HAND, 20 G. BLOOD DRAWN AND SENT TO LAB.
--- NOTE | 2017-10-09 12:20 | NUR ---
PATIENT PLACED ON BIPAP, 15/5, FIO 40%. TOLERATING WELL, O2 SAT99%
[2017-10-09 12:30] VITALS: BP 106/64
[2017-10-09] MEDS ORDERED: ALBUTEROL FS 2.5 MG/3 ML VIAL.NEB CONTNEB ONE (12:30)
[2017-10-09] MEDS ORDERED: ALBUTEROL FS 2.5 MG/3 ML VIAL.NEB NEB ONE (12:30)
[2017-10-09] MEDS ORDERED: IPRATROPIUM NEB FS 0.5 MG/2.5 ML AMPUL.NEB NEB ONE (12:30)
[2017-10-09 12:35] LABS: BASOPHILS # (AUTO) 0.1 /CMM (0.0-0.2); BASOPHILS % (AUTO) 0.9 % (0.0-2.0); EOSINOPHILS # (AUTO) 0.2 /CMM (0.0-0.7); EOSINOPHILS % (AUTO) 2.1 % (0.0-6.0); HEMATOCRIT 44 % (33-45); HEMOGLOBIN 14.2 g/dL (11.5-14.8); LYMPHOCYTES # (AUTO) 2.2 /CMM (0.8-4.8); LYMPHOCYTES % (AUTO) 26.9 % (20.0-44.0); MEAN CORPUSCULAR HEMOGLOBIN 30 PG (26.0-33.0); MEAN CORPUSCULAR HGB CONC 32 g/dl (31.0-36.0); MEAN CORPUSCULAR VOLUME 93 fL (82-100); MONOCYTES # (AUTO) 0.6 /CMM (0.1-1.30); MONOCYTES % (AUTO) 7.2 % (2.0-12.0); NEUTROPHILS # (AUTO) 5.1 /CMM (1.8-8.9); NEUTROPHILS % (AUTO) 62.9 % (43.0-81.0); PLATELET COUNT (AUTO) 259 /CMM (150-450); RDW COEFFICIENT OF VARIATION 13.3 (11.5-15.0); WHITE BLOOD COUNT (AUTO) 8.2 K/uL (4.3-11.0)
[2017-10-09 12:48] LABS: CALCIUM, SERUM 9.3 mg/dL (8.5-10.1); CARBON DIOXIDE 37 mmol/L (21-32); CHLORIDE 102 mmol/L (98-107); CREATININE 0.6 mg/dL (0.6-1.3); GLUCOSE 170 mg/dL (74-106); POTASSIUM 4.9 mmol/L (3.5-5.1); SODIUM SERUM 138 mmol/L (136-145); UREA NITROGEN, BLOOD 12 mg/dL (7-18)
[2017-10-09 12:56] LABS: TROPONIN I < 0.017 ng/mL (0.00-0.056)
[2017-10-09] MEDS ORDERED: methylPREDNISolone SOD SUCC 125 MG/2ML VIAL IV ONE (13:00)
[2017-10-09 13:01] LABS: ALANINE AMINOTRANSFERASE 16 U/L (12-78); ALBUMIN 3.4 g/dL (3.4-5.0); ALKALINE PHOSPHATASE 71 U/L (46-116); ASPARTATE AMINOTRANSFERASE 30 U/L (15-37); B-TYPE NATRIURETIC PEPTIDE 999 PG/ML (0-125); BILIRUBIN,TOTAL 0.3 mg/dL (0.2-1.0); TOTAL PROTEIN, SERUM 7.3 g/dL (6.4-8.2)
[2017-10-09] MEDS ORDERED: methylPREDNISolone SOD SUCC 125 MG/2ML VIAL ONE (13:06)
[2017-10-09] MEDS ORDERED: METO50TA16 PO (13:11)
[2017-10-09] MEDS ORDERED: CHOL50004 PO (13:11)
[2017-10-09] MEDS ORDERED: QUET25TA PO (13:11)
[2017-10-09] MEDS ORDERED: LORA0.5T PO (13:11)
[2017-10-09 13:30] VITALS: BP 106/60
[2017-10-09] MEDS ORDERED: METOPROLOL TARTRATE 50 MG TABLET PO SCH (14:30)
[2017-10-09] MEDS ORDERED: LEVOTHYROXINE SODIUM 50 MCG TABLET PO SCH (14:30)
[2017-10-09] MEDS ORDERED: MONTELUKAST SODIUM (10MG) 10 MG TABLET PO SCH (14:30)
[2017-10-09] MEDS ORDERED: BLOOD SUGAR DIAGNOSTIC 1 EACH STRIP IN SCH (14:30)
[2017-10-09] MEDS ORDERED: INSULIN REGULAR, HUMAN 100 UNIT/ML 3 ML VIAL SQ PRN (14:30)
[2017-10-09] MEDS ORDERED: IPRATROPIUM NEB FS 0.5 MG/2.5 ML AMPUL.NEB NEB SCH (14:30)
[2017-10-09] MEDS ORDERED: LEVOFLOXACIN 500 MG /D5W 100ML 500 MG/100 ML PIGGYBACK IV ONE (14:30)
[2017-10-09] MEDS ORDERED: QUETIAPINE FUMARATE 25 MG TABLET PO SCH (14:30)
[2017-10-09] MEDS ORDERED: ALBUTEROL FS 2.5 MG/0.5 ML VIAL.NEB NEB SCH (14:30)
[2017-10-09] MEDS ORDERED: methylPREDNISolone SOD SUCC 40 MG/ML VIAL IV SCH (14:30)
[2017-10-09] MEDS ORDERED: LORAZEPAM 0.5 MG TABLET PO PRN ×2 (14:30→15:00)
[2017-10-09] MEDS ORDERED: DEXTROSE 50%-WATER 50 ML DISP.SYRIN IV PRN ×2 (14:30→15:00)
--- NOTE | 2017-10-09 14:31 | NUR ---
TELE 120-2
--- NOTE | 2017-10-09 14:40 | NUR ---
REPORT GIVEN TO KEELEY BURTON FOR EDA UPON ADMISSION.
--- NOTE | 2017-10-09 14:45 | NUR ---
PATIENT TRANSPORTED TO [facility] VIA ACLS PROTOCOL. RNKEELEY TO PROVIDE EDA.
[2017-10-09 15:00] VITALS: BP 102/68
--- NOTE | 2017-10-09 15:00 | NUR ---
RN NOTES ROUND RED SPOTS NOTED ALL OVER THE SKIN, DR VILLANUEVA NOTIFIED , WOUND CONSULT ORDERED .
--- NOTE | 2017-10-09 15:00 | NUR ---
RN NOTES RECEIVED PT ON BED FROM ER IN ROOM 120-2, A/Ox2, PT MOANING BUT ZAHIDA ANY PAIN , ON 4L O2 N/C , O2 SAT 94%, NO SOB NOTED AT THIS TIME , ON TELE SR HR IN 80'S , L HAND IV G 20 CDI, SACRUM REDNESS NOTED, SR UP x3, CALL LIGHT WITHIN EASY REACH, BED LOCKED AND IN LOWEST POSITION , CONTINUE TO MONITOR .
[2017-10-09 16:30] LABS: ABG BASE EXCESS 3.6 mmol/L; ABG OXYGEN SATURATION 97.5 % (92.0-98.5); ABG PCO2 101.9 mmHg (35.0-45.0); ABG PH 7.165 (7.350-7.450); ABG PO2 122.8 mmHg (75.0-100.0); AaDO2 15.7 mmHg; COHb 0.7 % (0.5-1.5); MetHb 0.5 % (0.0-1.5); O2Hb 96.3 % (94.0-97.0); SITE, ABG Left Radial
[2017-10-09] MEDS: LEVOTHYROXINE SODIUM 50 MCG TABLET PO SCH (16:39)
[2017-10-09] MEDS: MONTELUKAST SODIUM (10MG) 10 MG TABLET PO SCH (16:40)
[2017-10-09] MEDS: METOPROLOL TARTRATE 50 MG TABLET PO SCH (17:00)
--- NOTE | 2017-10-09 17:00 | NUR ---
RN NOTES ABG DONE , DR VILLANUVEA NOTIFIED REGARDING THE RESULTS , PT PLACED ON BIPAP BY RT. CONTINUE TO MONITOR
[2017-10-09] MEDS: BLOOD SUGAR DIAGNOSTIC 1 EACH STRIP IN SCH ×2 (17:30→22:27)
[2017-10-09] MEDS: methylPREDNISolone SOD SUCC 40 MG/ML VIAL IV SCH (17:43)
--- NOTE | 2017-10-09 18:30 | NUR ---
RN NOTES PT ON BIPAP AT THIS TIME , STABLE , SR UPx3, CALL LIGHT WITHIN EASY REACH, BED LOCKED AND IN LOWEST POSITION , WILL ENDORSE TO EDI MANAGER NURSE JORDANA VERAS .
[2017-10-09 20:00] VITALS: BP 98/66
[2017-10-09] MEDS: IPRATROPIUM NEB FS 0.5 MG/2.5 ML AMPUL.NEB NEB SCH (20:05)
[2017-10-09] MEDS: ALBUTEROL FS 2.5 MG/0.5 ML VIAL.NEB NEB SCH (20:05)
[2017-10-09] MEDS ORDERED: LEVOFLOXACIN 500 MG /D5W 100ML 100 ML IV ONE (21:50)
[2017-10-09] MEDS: QUETIAPINE FUMARATE 25 MG TABLET PO SCH (22:00)
--- NOTE | 2017-10-09 22:30 | NUR ---
RN NOTES MD WITH ORDER FOR LEVAQUIN 500MG IV. PER PHARMACY NOTE, MD WAS TEXTED TO CLARIFY WHETHER X1 DOSE OR FURTHER ORDERS. MD PAGED FOR CLARIFICATION. UNABLE TO ADMINISTER AT THIS TIME DUE TO "PENDING" STATUS. WILL MONITOR PATIENT CLOSELY AND AWAIT CALL BACK FROM
--- NOTE | 2017-10-09 22:31 | NUR ---
RN NOTES BLOOD SUGAR 153. PATIENT AROUSABLE, A/O X1 TO SELF, BUT LETHARGIC. SSI HELD AT THIS TIME, WILL CONTINUE TO CLOSELY MONITOR
[2017-10-10] VITALS: BP 90/60
[2017-10-10] MEDS: IPRATROPIUM NEB FS 0.5 MG/2.5 ML AMPUL.NEB NEB SCH ×4 (02:04→20:01)
[2017-10-10] MEDS: ALBUTEROL FS 2.5 MG/0.5 ML VIAL.NEB NEB SCH ×4 (02:04→20:01)
[2017-10-10] MEDS: methylPREDNISolone SOD SUCC 40 MG/ML VIAL IV SCH ×3 (02:54→18:09)
[2017-10-10 04:00] VITALS: BP 95/59
--- NOTE | 2017-10-10 04:30 | NUR ---
RN NOTES PATIENT NOW AWAKE, MORE ALERT COMPARED TO THE START OF THE SHIFT. PATIENT REMOVING BIPAP DESPITE TEACHING REGARDING NEED. BIPAP REMOVED, PATIENT PLACED ON O2 VIA NC @ 2LPM, TOLERATING WELL, WILL CONTINUE TO CLOSELY MONITOR. RT ABEL MADE AWARE
--- NOTE | 2017-10-10 06:45 | NUR ---
RN CLOSING NOTES PATIENT RESTING COMFORTABLY IN BED, TOLERATING O2 VIA NC, OFF BIPAP SINCE 429. WILL ENDORSE THE PATIENT TO THE AM SHIFT NURSE FOR EDA
--- NOTE | 2017-10-10 07:10 | NUR ---
RN NOTES SPOKE TO PHARMACIST PIERO, CLARIFIED ORDERS FOR LEVAQUIN IV. WILL ADMINISTER WHEN LABEL RECEIVED.
--- NOTE | 2017-10-10 07:30 | NUR ---
BRAILLE AND TALKING BOOKS CLERK INITIAL NOTES RECEIVED PATIENT IN BED, AOX1, OFF BIPAP AT THIS TIME ON 2L NC SATURATING 96% O2, FARSI SPEAKING, ON TELE M MONITORING 84 HR SR, IV L HAND 22G, SL CLEAN AND PATENT, SKIN HAS GENERALIZED RASH, BED IN LOW AND LOCKED POSITION CALL LIGHT WITHIN REACH, WILL CONTINUE TO MONITOR.
[2017-10-10 08:00] VITALS: BP 100/57
[2017-10-10] MEDS ORDERED: LEVOFLOXACIN 500 MG /D5W 100ML 500 MG/100 ML PIGGYBACK IV SCH (08:00)
[2017-10-10] MEDS: BLOOD SUGAR DIAGNOSTIC 1 EACH STRIP IN SCH ×4 (08:01→21:06)
[2017-10-10] MEDS: LEVOFLOXACIN 500 MG /D5W 100ML 500 MG in PREMIX 1 EA IV SCH (08:18)
[2017-10-10] MEDS: LEVOTHYROXINE SODIUM 50 MCG TABLET PO SCH (08:19)
[2017-10-10] MEDS: MONTELUKAST SODIUM (10MG) 10 MG TABLET PO SCH (08:19)
[2017-10-10] MEDS: METOPROLOL TARTRATE 50 MG TABLET PO SCH ×2 (08:20→16:43)
[2017-10-10 12:00] VITALS: BP_SYST 104; BP_SYST 107; BP_DIAS 50
--- NOTE | 2017-10-10 12:30 | NUR ---
WIRE BOUND BOX MACHINE HELPER NOTES PATIENT REFUSED INSULIN COVERAGE. TEACHING DONE.
[2017-10-10 16:00] VITALS: BP 99/61
[2017-10-10] MEDS: INSULIN REGULAR, HUMAN 100 UNIT/ML 3 ML VIAL SQ PRN ×2 (16:50→21:13)
--- NOTE | 2017-10-10 19:02 | NUR ---
LATIN AMERICAN STUDIES PROFESSOR END NOTES PATIENT RESTING IN BED, NO SIGNS OF DISTRESS, ALL NEEDS MET WILL ENDORSE TO AXMINSTER WEAVER FOR CONTINUITY OF CARE.
--- NOTE | 2017-10-10 19:10 | NUR ---
LOCKSTITCH TOPSTITCHER OPENING NOTES RECEIVED REPORT FROM NIKOLE BURTON. PATIENT A/A/O X1-2 W/ SOME CONFUSION BUT ABLE TO MAKE SOME NEEDS KNOWN. BREATHING EVEN & UNLABORED, ON O2 2L VIA NC. DENIES SOB OR DIFFICULTY BREATHING. ON TELE SINUS RHYTHM IN THE 70S. LEFT HAND IV #20 INTACT & PATENT W/ DRESSING CDI, SALINE LOCKED. NO COMPLICATIONS NOTED. DENIES ANY PAIN OR DISCOMFORT @ THIS TIME. SAFETY MEASURES IN PLACE W/ SIDE RAILS UP, BED LOCKED & IN LOWEST POSITION, BED ALARM ON & CALL LIGHT WITHIN REACH. WILL CONTINUE TO MONITOR.
[2017-10-10 20:00] VITALS: BP 102/61
[2017-10-10] MEDS: QUETIAPINE FUMARATE 25 MG TABLET PO SCH (21:06)
[2017-10-11] VITALS: BP 100/65
[2017-10-11] MEDS: ALBUTEROL FS 2.5 MG/0.5 ML VIAL.NEB NEB SCH ×3 (01:30→13:52)
[2017-10-11] MEDS: IPRATROPIUM NEB FS 0.5 MG/2.5 ML AMPUL.NEB NEB SCH ×3 (01:30→13:52)
[2017-10-11] MEDS: methylPREDNISolone SOD SUCC 40 MG/ML VIAL IV SCH (02:00)
[2017-10-11 04:00] VITALS: BP 106/71
[2017-10-11] MEDS: BLOOD SUGAR DIAGNOSTIC 1 EACH STRIP IN SCH ×2 (07:30→12:17)
[2017-10-11 08:00] VITALS: BP 104/67
[2017-10-11 08:24] LABS: BASOPHILS % (AUTO) 0.5 % (0.0-2.0); EOSINOPHILS % (AUTO) 0.1 % (0.0-6.0); HEMATOCRIT 42 % (33-45); HEMOGLOBIN 13.8 g/dL (11.5-14.8); LYMPHOCYTES # (AUTO) 1.7 /CMM (0.8-4.8); LYMPHOCYTES % (AUTO) 18.4 % (20.0-44.0); MEAN CORPUSCULAR HEMOGLOBIN 30 PG (26.0-33.0); MEAN CORPUSCULAR HGB CONC 33 g/dl (31.0-36.0); MEAN CORPUSCULAR VOLUME 92 fL (82-100); MONOCYTES # (AUTO) 0.6 /CMM (0.1-1.30); NEUTROPHILS # (AUTO) 6.8 /CMM (1.8-8.9); PLATELET COUNT (AUTO) 295 /CMM (150-450); RDW COEFFICIENT OF VARIATION 13.7 (11.5-15.0); RED BLOOD CELL COUNT(AUTO) 4.58 MIL/uL (4.0-5.2); WHITE BLOOD COUNT (AUTO) 9.1 K/uL (4.3-11.0)
[2017-10-11] MEDS: LEVOTHYROXINE SODIUM 50 MCG TABLET PO SCH (08:31)
[2017-10-11] MEDS: MONTELUKAST SODIUM (10MG) 10 MG TABLET PO SCH (08:31)
[2017-10-11] MEDS: METOPROLOL TARTRATE 50 MG TABLET PO SCH (08:32)
[2017-10-11] MEDS: LEVOFLOXACIN 500 MG /D5W 100ML 500 MG in PREMIX 1 EA IV SCH (08:32)
[2017-10-11] MEDS ORDERED: methylPREDNISolone SOD SUCC 40 MG/ML VIAL IV SCH (10:00)
[2017-10-11 10:26] LABS: ABG BASE EXCESS 10.3 mmol/L; ABG OXYGEN SATURATION 88.9 % (92.0-98.5); ABG PCO2 44.3 mmHg (35.0-45.0); ABG PO2 52.7 mmHg (75.0-100.0); MetHb 0.4 % (0.0-1.5); O2Hb 88.5 % (94.0-97.0); SITE, ABG Right Radial; VENT MODE, BG RA
[2017-10-11 12:00] VITALS: BP 101/67
[2017-10-11] MEDS ORDERED: PNEUMOCOCCAL 23-VAL P-SAC VAC 0.5 ML VIAL SQ ONE (14:00)
[2017-10-11] MEDS ORDERED: FLU VACC QS 2017-18(36MOS+)/PF 0.5 ML DISP.SYRIN IM ONE (14:00)
[2017-10-11] MEDS ORDERED: ALBU6.7H INH (15:39)
[2017-10-11] MEDS ORDERED: LEVO500T2 PO (15:39)
[2017-10-11] MEDS ORDERED: FLUT1DIS INH (15:39)
[2017-10-12] MEDS ORDERED: LEVOFLOXACIN (500MG) 500 MG TABLET PO SCH (08:00)
[2017-10-15] MEDS ORDERED: CHOLECALCIFEROL 1,000 UNIT TABLET (VIT D3) PO SCH (09:00)
== END 2017-10-11 15:30 | DRG 190 ==
LOC: ER 12:08 → TELE-TD 15:36 → TELE1 15:47
PROVIDERS: ADMIT Internal Medicine; ATTEND Internal Medicine
PROC: 5A09457 Assistance with Respiratory Ventilation, 24-96 Consecutive Hours, Continuous Positive Airway Pressure (ICD-10-PCS; principal; 2017-10-09)
DX: J44.1 Chronic obstructive pulmonary disease with (acute) exacerbation (principal); J96.90 Respiratory failure, unspecified, unspecified whether with hypoxia or hypercapnia; I50.30 Unspecified diastolic (congestive) heart failure; E11.9 Type 2 diabetes mellitus without complications; J44.0 Chronic obstructive pulmonary disease with (acute) lower respiratory infection; Z66 Do not resuscitate; J45.909 Unspecified asthma, uncomplicated; I25.2 Old myocardial infarction; I25.10 Atherosclerotic heart disease of native coronary artery without angina pectoris; Z79.84 Long term (current) use of oral hypoglycemic drugs; Z88.0 Allergy status to penicillin; Z88.8 Allergy status to other drugs, medicaments and biological substances; Z88.6 Allergy status to analgesic agent; Z91.012 Allergy to eggs; Z91.011 Allergy to milk products; M19.90 Unspecified osteoarthritis, unspecified site; I11.0 Hypertensive heart disease with heart failure; E03.9 Hypothyroidism, unspecified; K21.9 Gastro-esophageal reflux disease without esophagitis; Z79.899 Other long term (current) drug therapy
CPT/HCPCS: 36415; 36600; 71045; 80048-TC; 80076-TC; 82803-TC; 82962-TC; 83880; 84484-TC; 85025-TC; 90732; 94762-TC; A4216; A4606; J1815; J1956; J2920; J2930; J7050; Q2036